=== PATIENT | female | born 1965 | race Two or more races ===

== ENCOUNTER 2018-05-25 02:51 | Emergency (ER) | payer OTHER ==
[~2018-05-25] VITALS: Ht 149.9 cm; Wt 48.1 kg
[~2018-05-25 02:51] MED LIST: KETO10TA2 PO; NORFLEX PO; PLAQUENIL; ULTRACET PO
[2018-05-25] MEDS ORDERED: PEPCID AC20 MG PO (08:54)
== END 2018-05-25 09:38 | disposition home or self-care (01) ==
LOC: ER 02:51
DX: R07.89 Other chest pain (principal); K21.9 Gastro-esophageal reflux disease without esophagitis; F10.129 Alcohol abuse with intoxication, unspecified